=== PATIENT | female | born 1985 | race Caucasian/White ===

== ENCOUNTER 2016-05-26 11:00 | Outpatient (CLI) | payer OTHER ==
[~2016-05-26] VITALS: Ht 165.1 cm; Wt 89.1 kg
[2016-05-26 11:01] VITALS: BP 117/66; PULSE 85; RESP 18; Ht 165.1 cm; Wt 89.1 kg
--- NOTE | 2016-05-26 13:23 | CONS ---
[facility] INITIAL OUTPATIENT CONSULTATION NOTE DATE OF CONSULTATION: 05/26/2016 PLACE OF SERVICE: [facility] IMPRESSION AND PLAN: A very pleasant 30-year-old lady with: Radio BMI of 32.7, presenting with nonspecific abdominal pain complaints which do not appear to be associated with an obvious surgical problem. I personally do not feel that the patient has a lipomas that are easily detectable on physical exam. She would not benefit from a surgical excision of lipomas if she had them since they usually do not cause any pain. I do believe that the patient's symptoms warrant further workup, and I recommended that we obtain a CT scan of the abdomen and pelvis with IV and oral contrast to better delineate the clinical picture. I am happy to order this test and will review it, and if the patient has an obvious surgical problem. I would ask the office to bring her back for further discussions. In the meantime, she should still follow up with her regular doctor and to continue workup for her symptoms. The differential is broad, and it could include symptoms such as gastritis, gallbladder disease, issues with constipation or colon problems, all which can be addressed through appropriate use of resources including, but not limited to gastroenterology consultation and further testing. I also spent an approximately 15-minute timeframe, discussions about the how the patient can lead a healthier lifestyle to bring her BMI back down to healthy range of 18 to 24. I explained to her what BMI was and means to monitor that at home. I also explained to her the importance of further education regarding calories, and the ways to achieve healthy calorie intake without overdoing the amount. We emphasized the importance of consistent exercise, and I answered all the patient's questions. I believe that the patient understands and agrees with the plans. With above assessment I have recommended the followin. CT scan of abdomen and pelvis with IV and oral contrast. 2. Return visit with us if a surgical problem is found on the CAT scan. 3. Continue work with primary care physician with possible need for other specialty consultations including, but not limited to, gastroenterology for consideration for upper and lower endoscopy. 4. Change of lifestyle with the goal of bringing the BMI down to 18 to 24. Thank you again for allowing us to participate in the care of this very pleasant lady and her wonderful family. If there are any questions, please feel free to contact me at [phone]. TOTAL VISIT TIME: 45 minutes of which more than half was spent in [id number] discussion with the patient as well as coordination of care between multiple physicians and providers. UPDATED CLINICAL SUMMARY: A very pleasant 30-year-old lady with comorbidities including a BMI of 32.7, presenting for evaluation of possible lipoma in the left upper quadrant. COMORBIDITIES: 1. BMI 32.7. 2. Contact dermatitis. 3. Chronic abdominal pain, left upper quadrant. HISTORY OF PRESENT ILLNESS: The patient is a very pleasant 30-year-old young lady with above-mentioned comorbidities whom we were kindly asked to consult regarding management of possible lipoma in the left upper quadrant. The patient describes many years, history of left upper quadrant pain. That used to be strong attacks to a point where she had to go to the emergency department and oftentimes was similar to having a severe asthma attack which she could not take a deep breath. She reports having less symptoms such as those recently and underwent an ultrasound of the abdomen which appears to be an office-based ultrasound that indicated the possibility of a lipoma. Note that the handwritten report indicates no mass on the report. The patient described feeling pain in the left upper quadrant, in the right upper quadrant, and in her right flank and back. She does not report any changes in her appetite and no changes in her weight. No difficulties with chronic diarrhea or constipation. ALLERGIES: IBUPROFEN. MEDICATIONS: 1. Calcium. 2. vitamins. SOCIAL HISTORY: The patient lives with her and 3 children. She does a 9-year-old son, an 8-year-old daughter, and a 9-month-old daughter. She does not report any smoking, drinking, or intravenous drug use. FAMILY HISTORY: No major mention of medical, surgical or oncologic problems in the family. REVIEW OF SYSTEMS: Other than the above-mentioned, there are no other pertinent positives or pertinent negatives in a complete 14-point review of systems. PHYSICAL EXAMINATION: GENERAL: The patient appears to be a very pleasant lady of descent, appearing stated age, sitting in a chair comfortably, and in no acute distress. BMI is 32.7. VITAL SIGNS: Temperature 98.1, blood pressure 117/66, pulse 85, respiratory rate 18, pulse oximetry 95% on room air. HEENT: Normocephalic and atraumatic. Extraocular muscles and hearing are grossly intact bilaterally and symmetrically. Sclerae are nonicteric. Oral cavity is clear; oral mucosa appeared to be pink and moist. Dentition: fair. NECK: Supple. There is no lymphadenopathy or JVD. There is no submental, submandibular or supraclavicular lymphadenopathy. CHEST: Rises symmetrically with each breath; patient is breathing comfortably. There are no audible wheezes, rales or rhonchi on the gross exam. HEART: Pulse is regular and palpable on the right wrist. Capillary refill was normal. Carotid pulses are palpable bilaterally and symmetrically in the neck. EXTREMITIES: Lower extremities contain no pitting edema around the ankles bilaterally and symmetrically. ABDOMEN: Abdomen is soft, nontender and nondistended. There are no peritoneal signs or guarding. No evidence of ascites, organomegaly, caput medusae, engorged subcutaneous veins, or other abnormalities. I do not sense any mass or any evidence of hernia. The rest of the abdomen appears to be soft, nontender, and nondistended. The areas where the patient is pointing to are certainly normal-appearing in an otherwise obese lady. SKIN: Appears to be pink and feels warm to touch. NEUROLOGIC: Awake, alert, and follows commands appropriately. LABORATORY VALUES: On 01/31/2016, white blood cell count 8, platelets 278. CO2 30, creatinine 0.58. Liver function and injury parameters normal. Albumin 4.6. IMAGING: Reviewed above. Note that I did not have access to the images. Dictated By: JUAN FRANCISCO LIEBERMAN/BRIGIDO Conf#: [id number] DID#: [id number] CC: Saleem MANNING; LAURI ARMSTRONG M.D.;*EndCC* MTDD
== END 2016-05-26 16:56 | disposition home or self-care (01) ==
LOC: HPC 11:00
PROVIDERS: ATTEND Transplant Surgery
DX: R10.12 Left upper quadrant pain (principal)
CPT/HCPCS: G0463

== ENCOUNTER 2016-06-26 23:47 | Emergency (ER) | payer SELFPAY | END 2016-06-27 02:23 | disposition left against medical advice (07) | LOC: FTE 23:47 | DX: Z53.21 Procedure and treatment not carried out due to patient leaving prior to being seen by health care provider (principal) ==

== ENCOUNTER 2017-02-10 19:36 | Emergency (ER) | END 2017-02-10 21:08 | disposition home or self-care (01) ==

== ENCOUNTER 2017-09-13 05:57 | Day surgery (SDC) | END 2017-09-14 11:00 | disposition home or self-care (01) ==

== ENCOUNTER 2017-10-20 16:31 | Emergency (ER) | END 2017-10-20 22:10 | disposition home or self-care (01) ==